=== PATIENT | female | born 2000 | race Caucasian/White ===

== ENCOUNTER 2019-05-04 22:13 | Emergency (ER) | payer OTHER ==
[2019-05-04] MEDS ORDERED: NORMAL SALINE 1000 ML 1,000 ML IV ONE (23:04)
[2019-05-04] MEDS ORDERED: ONDANSETRON HCL INJ/PF 4 MG/2 ML SDV IV ONE (23:04)
--- NOTE | 2019-05-04 23:38 | ER Document Report ---
ED GI/ - General Chief Complaint: Flank Pain Stated Complaint: RIGHT FLANK PAIN Time Seen by Provider: 05/04/19 23:03 Notes: Patient is a 19-year-old female presents to the emergency department for right flank pain that started yesterday afternoon. States it was crampy in nature rating it around a 2 out of 10. States she is denying dysuria but is admitting to urinary frequency. She is denying any vaginal discharge. States this evening around 1930 the pain became sharp and constant in her right flank. Rating it at a 7 out of 10. Patient states this is why she presents to the emergency department. Patient's denying any nausea or vomiting. She is denying any abdominal pain. States at one point time this evening she does feel as though the pain may have radiated around to her right groin but is denying any pain now. Past medical history: Anemia medications: Iron allergies: Penicillin, tetracycline TRAVEL OUTSIDE OF THE [place] IN LAST 30 DAYS: No - Related Data Allergies/Adverse Reactions: Penicillins Allergy (Verified 05/04/19 23:26) tetracycline Allergy (Verified 05/04/19 23:26) Home Medications: ferrous sulfate. mvi Past Medical History - General Information source: Patient - Social History Smoking Status: Never Smoker Family History: Reviewed & Not Pertinent Patient has suicidal ideation: No Patient has homicidal ideation: No Review of Systems - Review of Systems Constitutional: denies: Fever EENT: No symptoms reported Cardiovascular: No symptoms reported Respiratory: No symptoms reported Gastrointestinal: See HPI Genitourinary: See HPI Female Genitourinary: Last menstrual period - Unknown Musculoskeletal: See HPI Skin: No symptoms reported Hematologic/Lymphatic: See HPI Neurological/Psychological: No symptoms reported Physical Exam - Vital signs Vitals: Temp Pulse Resp BP Pulse Ox 97.9 F 77 20 160/84 H 99 05/04/19 22:28 05/04/19 22:28 05/04/19 22:28 05/04/19 22:28 05/04/19 22:28 - Notes Notes: GENERAL: Alert, interacts well. No acute distress. HEAD: Normocephalic, atraumatic. EYES: Pupils equal, round, and reactive to light. Extraocular movements intact. ENT: Oral mucosa moist, tongue midline. NECK: Full range of motion. Supple. Trachea midline. LUNGS: Clear to auscultation bilaterally, no wheezes, rales, or rhonchi. No respiratory distress. HEART: Regular rate and rhythm. No murmur ABDOMEN: Soft, non-tender. No pelvic pain noted, no suprapubic tenderness noted. Non-distended. Bowel sounds present in all 4 quadrants. EXTREMITIES: Moves all 4 extremities spontaneously. No edema, normal radial and dorsalis pedis pulses bilaterally. No cyanosis. BACK: no cervical, thoracic, lumbar midline tenderness. No saddle anesthesia, normal distal neurovascular exam. Positive right CVA tenderness, no left CVA tenderness noted. NEUROLOGICAL: Alert and oriented x3. Normal speech. cranial nerves II through XII grossly intact PSYCH: Normal affect, normal mood. SKIN: Warm, dry, normal turgor. No rashes or lesions noted. Course - Re-evaluation Re-evalutation: 05/05/19 01:12 Laboratory 05/05/19 05/05/19 05/05/19 00:06 00:06 00:06 WBC 8.6 RBC 4.78 Hgb 14.0 Hct 41.7 MCV 87 MCH 29.3 MCHC 33.6 RDW 13.0 Plt Count 257 Lymph % (Auto) 23.7 [place] % (Auto) 8.4 Eos % (Auto) 0.9 Baso % (Auto) 0.5 Absolute Neuts (auto) 5.7 Absolute Lymphs (auto) 2.0 Absolute Monos (auto) 0.7 Absolute Eos (auto) 0.1 Absolute Basos (auto) 0.0 Seg Neutrophils % 66.5 Sodium 143.2 Potassium 4.0 Chloride 105 Carbon Dioxide 25 Anion Gap 13 BUN 21 H Creatinine 0.77 Est GFR ( Amer) > 60 Est GFR (MDRD) Non-Af > 60 Glucose 88 Calcium 10.0 Total Bilirubin 0.3 Direct Bilirubin 0.1 Neonat Total Bilirubin Not Reportable Neonat Direct Bilirubin Not Reportable Neonat Indirect Bili Not Reportable AST 27 ALT 19 Alkaline Phosphatase 71 Total Protein 8.2 Albumin 5.1 H Urine Color YELLOW Urine Appearance SLIGHTLY-CLOUDY Urine pH 7.0 Ur Specific [place] 1.015 Urine Protein NEGATIVE Urine Glucose (UA) NEGATIVE Urine Ketones NEGATIVE Urine Blood SMALL H Urine Nitrite NEGATIVE Urine Bilirubin NEGATIVE Urine Urobilinogen NEGATIVE Ur Leukocyte Esterase TRACE H Urine WBC (Auto) 15 Urine RBC (Auto) 17 Squamous Epi Cells Auto 5 Urine Mucus (Auto) RARE Urine Ascorbic Acid NEGATIVE Urine HCG, Qual NEGATIVE Renal Ultrasound 05/04/19 23:30 IMPRESSION: Unremarkable renal ultrasound. Discussed with pt at bedside her lab and US results, Urine sent for CX. Discussed blood on UA, Pt then voices she thinks her period to suppose to be starting soon. Patient voices she feels better after fluids and Toradol. I discussed should this be a kidney stone the pain may migrate to her right abdomen and groin. Typically treated with pain medication and nausea medication. I discussed this could also be a muscle pull as patient initially thought. Although she is denyi ng any sort of injury that she knows of. I discussed the definitive diagnosis of a kidney stone is typically a CT. Patient wishes to deny CT imaging at this time. States she will "see how I feel." I discussed close follow-up with primary care provider with close return precautions. Patient voices she does feel better and is stable for discharge. - Vital Signs Vital signs: Temp Pulse Resp BP Pulse Ox 97.9 F 77 20 160/84 H 99 05/04/19 22:28 05/04/19 22:28 05/04/19 22:28 05/04/19 22:28 05/04/19 22:28 - Laboratory Result Diagrams: 05/05/19 00:06 05/05/19 00:06 Laboratory results interpreted by me: 05/05/19 05/05/19 00:06 00:06 BUN 21 H Albumin 5.1 H Urine Blood SMALL H Ur Leukocyte Esterase TRACE H Discharge - Discharge Clinical Impression: Flank pain Condition: Stable Disposition: HOME, SELF-CARE Instructions: Toradol Injection ([facility]), Flank Pain ([facility]) Additional Instructions: As we discussed you have been seen and treated in the emergency department for your right flank pain. This could be a muscle pull this also could be kidney stones. Your ultrasound showed no signs of abnormalities. Your urine was sent for culture although does not initially appear infected. Your urine did show slight signs of blood. This could be you starting your menses. Or this could be a kidney stone. Please know should this be a kidney stone the pain typically continues to radiate from your right flank around to your right groin. Please use medications as prescribed. Please also return to the emergency department for any concerns. Follow-up with your primary care doctor in the next 12 to 24 hours. Forms: Return to Work Referrals: CITLALY TERRY PA-C [Primary Care Provider] - Follow up as needed
[2019-05-05 00:36] LABS: APPEARANCE,URINE SLIGHTLY-CLOUDY; BILIRUBIN,URINE NEGATIVE (NEGATIVE); COLOR,URINE YELLOW; GLUCOSE, URINE NEGATIVE (NEGATIVE); KETONES,URINE NEGATIVE (NEGATIVE); LEUKOCYTE ESTERASE,URINE TRACE (NEGATIVE); NITRITE,URINE NEGATIVE (NEGATIVE); PROTEIN,URINE NEGATIVE (NEGATIVE); URINE SPECIFIC GRAVITY 1.015; UROBILINOGEN,URINE NEGATIVE mg/dL (<2.0)
[2019-05-05 00:38] LABS: ALBUMIN 5.1 g/dL (3.5-5.0); ALKALINE PHOSPHATASE 71 U/L (38-126); ANION GAP 13 (5-19); ASPARTATE AMINO TRANSFERASE 27 U/L (14-36); BILIRUBIN,DIRECT 0.1 mg/dL (0.0-0.4); BILIRUBIN,TOTAL 0.3 mg/dL (0.2-1.3); BLOOD UREA NITROGEN 21 mg/dL (7-20); CARBON DIOXIDE 25 mmol/L (22-30); CHLORIDE 105 mmol/L (98-107); GLUCOSE 88 mg/dL (75-110); TOTAL PROTEIN 8.2 g/dL (6.3-8.2)
[2019-05-05] MEDS ORDERED: KETOROLAC TROMETHAMINE INJ/PF 30 MG/1 ML SDV IV ONE (00:41)
[2019-05-05 00:44] LABS: ABSOLUTE EOSINOPHILS # (AUTO) 0.1 10^3/uL (0.0-0.6); ABSOLUTE MONOCYTES (AUTO) 0.7 10^3/uL (0.1-1.4); ABSOLUTE NEUT (AUTO) 5.7 10^3/uL (1.7-8.2); BASOPHILS % (AUTO) 0.5 % (0-2); EOSINOPHILS % (AUTO) 0.9 % (0-6); HEMATOCRIT 41.7 % (36.0-47.0); LYMPHOCYTES % (AUTO) 23.7 % (13-45); MEAN CORPUSCULAR HEMOGLOBIN 29.3 pg (27.0-33.4); MEAN CORPUSCULAR HGB CONC 33.6 g/dL (32.0-36.0); MEAN CORPUSCULAR VOLUME 87 fl (80-97); MONOCYTES % (AUTO) 8.4 % (3-13); PLATELET COUNT 257 10^3/uL (150-450); RED BLOOD COUNT 4.78 10^6/uL (3.72-5.28); SEGMENTED NEUTROPHILS % (AUTO) 66.5 % (42-78); TOTAL CELLS COUNTED % (AUTO) 100 %; WHITE BLOOD COUNT 8.6 10^3/uL (4.0-10.5)
--- NOTE | 2019-05-05 01:06 | RADIOLOGY REPORT (SQ) ---
US RETROPERITONEUM EXAM DATE: 05/04/2019 11:30 PM CDT HISTORY: Right flank pain. COMPARISON: None. TECHNIQUE: Grayscale and color Doppler ultrasound images of the kidneys were obtained. FINDINGS: The right kidney measures 12.5 cm in length, which is normal size. The cortex has normal thickness and echogenicity. There is no right-sided kidney stone, mass or hydronephrosis. The left kidney measures 11.4 cm in length, which is normal size. The cortex has normal thickness and echogenicity. There is no left-sided kidney stone, mass or hydronephrosis. Bilateral ureteral jets are identified. IMPRESSION: Unremarkable renal ultrasound.
[2019-05-05] MEDS ORDERED: ONDANSETRON ODT 4 MG TAB (6 TAB/ER DISP) PO PRN (01:16)
[2019-05-05] MEDS ORDERED: HYDROCODONE/ACETAMINOPHEN 5-325 MG (6 TAB/ER DISP) PO PRN (01:16)
[2019-05-05 01:43] VITALS: BP 126/80
== END 2019-05-05 01:43 | disposition home or self-care (01) ==
LOC: ER 22:13
DX: R10.9 Unspecified abdominal pain (principal); D64.9 Anemia, unspecified; R35.0 Frequency of micturition
CPT/HCPCS: 36415; 87086; 85025; 81025; 80053; 81001; 76770; J1885; J2405; J7030; 96361; 96374; 96375; 99284